=== PATIENT | male | born 1975 | race Caucasian/White ===

== ENCOUNTER 2016-11-01 18:13 | Emergency (ER) | payer OTHER ==
[~2016-11-01] VITALS: Wt 90.7 kg
[~2016-11-01 18:13] MED LIST: ATARAX25 MG PO; BENTYL20 MG PO; CATAFLAM50 MG PO; CINNAMON500 MG PO; CLARITIN-D 10 M1 T24 PO; DAYPRO600 M1 PO; EPI EZ PEN1 MG/ML IM; FLAGYL500 MG PO; FLEXERIL10 MG PO; HYDROCODONE BIT1 T11 PO; MEDROL DOSEPAK4 MG PO; MOTRIN800 MG PO; NAPROSYN500 MG PO; NKHM; PREDNISONE20 MG PO; ROBAXIN750 MG PO; TAGAMET300 MG PO; VICODIN 500 MG-1 TAB PO
[2016-11-01] MEDS ORDERED: AMOXICILLIN500 M2 PO (19:29)
== END 2016-11-01 19:49 | disposition home or self-care (01) ==
LOC: ED 18:13
DX: J02.9 Acute pharyngitis, unspecified (principal); F17.200 Nicotine dependence, unspecified, uncomplicated; Z88.6 Allergy status to analgesic agent

== ENCOUNTER 2017-05-05 08:16 | Emergency (ER) | payer BC, OTHER ==
[~2017-05-05] VITALS: Ht 175.2 cm; Wt 77.1 kg
[~2017-05-05 08:16] MED LIST changes: +AMOXICILLIN500 M2 PO
== END 2017-05-05 08:47 | disposition home or self-care (01) ==
LOC: ED 08:16
DX: L25.9 Unspecified contact dermatitis, unspecified cause (principal); H57.8 Other specified disorders of eye and adnexa; F17.200 Nicotine dependence, unspecified, uncomplicated; Z88.6 Allergy status to analgesic agent

== ENCOUNTER 2017-08-31 17:58 | Emergency (ER) | payer BC ==
[~2017-08-31] VITALS: Wt 79.4 kg
[2017-08-31] MEDS ORDERED: VIBRAMYCIN100 MG PO (19:58)
[2017-08-31] MEDS ORDERED: NAPROSYN500 MG PO (19:58)
[2017-08-31] MEDS ORDERED: Motrin,Rufen800 MG PO (20:07)
== END 2017-08-31 20:03 | disposition home or self-care (01) ==
LOC: ED 17:58
DX: N45.1 Epididymitis (principal); F17.200 Nicotine dependence, unspecified, uncomplicated; F10.10 Alcohol abuse, uncomplicated; Z88.8 Allergy status to other drugs, medicaments and biological substances; Z79.899 Other long term (current) drug therapy

== ENCOUNTER 2017-10-12 03:58 | Emergency (ER) | payer BC ==
[~2017-10-12] VITALS: Ht 177.8 cm; Wt 72.6 kg
[~2017-10-12 03:58] MED LIST changes: +Motrin,Rufen800 MG PO; +VIBRAMYCIN100 MG PO
[2017-10-12 04:37] LABS: URINE AMPHETAMINES > 1000 (1000ng/ml); URINE BARBITURATES < 200 (200ng/ml); URINE BENZODIAZEPINES > 200 (200ng/ml); URINE CANNABINOIDS (THC) < 50 (50ng/ml); URINE COCAINE > 300 (300ng/ml); URINE METHADONE < 300 (300ng/ml); URINE OPIATES < 300 (300ng/ml)
[2017-10-12 04:38] LABS: URINE PHENCYCLIDINE < 25 (25ng/ml)
[2017-10-12 04:45] LABS: BASO # 0.1 10*3/uL (0.0-0.1); BASO % 0.5 % (0.0-1.0); EOS % 0.2 % (1.0-4.0); HEMOGLOBIN 13.4 g/dl (14.0-18.0); LYMPH # 1.5 10*3/uL (1.3-4.4); LYMPH % 8.3 % (27.0-41.0); MEAN CELL VOLUME 87.5 fl (80.0-94.0); MEAN CORPUSCULAR HGB 29.3 pg (27.0-31.0); MEAN CORPUSCULAR HGB CONC 33.5 g/dl (33.0-37.0); MEAN PLATELET VOLUME 10.9 fl (9.6-12.3); MONO # 1.4 10*3/uL (0.1-1.0); MONO % 7.7 % (3.0-9.0); NEUT # 15.2 10*3/uL (2.3-7.9); NEUT % 82.2 % (47.0-73.0); PLATELET COUNT AUTOMATED 229 10*3/uL (130-400); RED BLOOD COUNT 4.57 10*6/uL (4.50-5.90); RED CELL DISTRI WIDTH 13.4 % (0-14.5); WHITE BLOOD COUNT 18.4 10*3/uL (4.8-10.8)
[2017-10-12 04:59] LABS: ALBUMIN 3.6 gm/dl (3.1-4.5); ALKALINE PHOSPHATASE 87 U/L (45-117); BUN 21 mg/dl (7-24); CHLORIDE 108 mmol/L (98-107); CREATININE 1.36 mg/dL (0.70-1.30); POTASSIUM 4.2 mmol/L (3.5-5.1); SGOT/AST 50 IU/L (3-35); SGPT/ALT 38 U/L (12-78); SODIUM 142 mmol/L (136-145); TOTAL PROTEIN 7.2 gm/dL (6.4-8.2)
[2017-10-12 05:00] LABS: ACETAMINOPHEN (TYLENOL) < 2.0 ug/ml (10-30); ETHYL ALCOHOL < 3.0 mg/dl (<3)
== END 2017-10-12 07:46 ==
LOC: ED 03:58
PROVIDERS: Emergency Medicine Emergency Medical Services
DX: S51.812A Laceration without foreign body of left forearm, initial encounter (principal); F19.10 Other psychoactive substance abuse, uncomplicated; Z88.6 Allergy status to analgesic agent; W16.112A Fall into natural body of water striking water surface causing other injury, initial encounter; Y93.39 Activity, other involving climbing, rappelling and jumping off; Y92.89 Other specified places as the place of occurrence of the external cause; Y99.8 Other external cause status

== ENCOUNTER 2018-02-27 10:49 | Inpatient (IN) | payer SELFPAY ==
[~2018-02-27] VITALS: Ht 175.3 cm; Wt 80.9 kg
--- NOTE | ~2018-02-27 | EKG ---
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
[2018-02-27 10:53] VITALS: BP 125/85
[2018-02-27 11:21] LABS: HEMATOCRIT 51.9 % (42.0-52.0); HEMOGLOBIN 16.6 g/dl (14.0-18.0); MEAN CELL VOLUME 89.6 fl (80.0-94.0); MEAN CORPUSCULAR HGB 28.7 pg (27.0-31.0); PLATELET COUNT AUTOMATED 205 10*3/uL (130-400); RED BLOOD COUNT 5.79 10*6/uL (4.50-5.90); RED CELL DISTRI WIDTH 13.7 % (0-14.5); WHITE BLOOD COUNT 8.6 10*3/uL (4.8-10.8)
[2018-02-27 11:29] LABS: ACT PARTIAL THROMBO TIME 25.5 SECONDS (20.8-31.5); INTERNATIONAL NORM RATIO 1.1 (2.0-3.5)
[2018-02-27 11:38] LABS: ALBUMIN 3.6 gm/dl (3.1-4.5); ALKALINE PHOSPHATASE 239 U/L (45-117); BUN 10 mg/dl (7-24); CHLORIDE 107 mmol/L (98-107); CREATININE 1.36 mg/dL (0.70-1.30); LIPASE 161 U/L (73-393); POTASSIUM 4.2 mmol/L (3.5-5.1); SGOT/AST 802 IU/L (3-35); SODIUM 140 mmol/L (136-145); TOTAL PROTEIN 7.5 gm/dL (6.4-8.2)
[2018-02-27 11:39] LABS: ATYPICAL LYMPHS 4 % (0-0); TOTAL CELLS COUNTED 100 #CELLS
[2018-02-27 11:40] LABS: PLATELET SUFFICIENCY NORMAL (NORMAL)
[2018-02-27 11:47] LABS: SGPT/ALT 1929 U/L (12-78); TROPONIN I < 0.015 ng/ml (<0.045)
[2018-02-27 12:00] VITALS: BP 99/72
[2018-02-27 13:20] VITALS: BP 99/72
[2018-02-27 16:00] VITALS: BP 109/77
[2018-02-27 19:51] LABS: URINE AMPHETAMINES < 1000 (1000ng/ml); URINE BARBITURATES > 200 (200ng/ml); URINE BENZODIAZEPINES < 200 (200ng/ml); URINE CANNABINOIDS (THC) < 50 (50ng/ml); URINE COCAINE > 300 (300ng/ml); URINE METHADONE < 300 (300ng/ml); URINE OPIATES < 300 (300ng/ml)
[2018-02-27 19:52] LABS: URINE PHENCYCLIDINE < 25 (25ng/ml)
[2018-02-28 08:49] LABS: HEPATITIS B SURFACE AG Negative (Negative)
[2018-02-28 09:15] LABS: HEPATITIS C VIRUS ANTIBODY 8.8 s/co (0.0-0.9)
[2018-02-28 10:02] LABS: AFP TUMOR MARKER 002253 3.3 ng/mL (0.0-8.3)
== END 2018-02-27 21:07 | disposition left against medical advice (07) | DRG 683 ==
LOC: ED 10:49 → EDHOLD 12:36 → 4E 12:51
PROVIDERS: Emergency Medicine; Internal Medicine; Student in an Organized Health Care Education/Training Program
DX: N17.0 Acute kidney failure with tubular necrosis (principal); K82.0 Obstruction of gallbladder; B17.9 Acute viral hepatitis, unspecified; E80.6 Other disorders of bilirubin metabolism; K76.0 Fatty (change of) liver, not elsewhere classified; F17.210 Nicotine dependence, cigarettes, uncomplicated; E83.51 Hypocalcemia; N18.9 Chronic kidney disease, unspecified; Z88.8 Allergy status to other drugs, medicaments and biological substances

== ENCOUNTER 2018-05-25 16:57 | Emergency (ER) | payer SELFPAY ==
[~2018-05-25] VITALS: Ht 177.8 cm; Wt 86.2 kg
[2018-05-25 17:45] LABS: BILIRUBIN 1+ (NEGATIVE); BLOOD 3+ (NEGATIVE); CLARITY TURBID (CLEAR); COLOR BROWN (YELLOW); GLUCOSE NEGATIVE (NEGATIVE); KETONE TRACE (NEGATIVE); NITRITE POSITIVE (NEGATIVE); PH 6.5 (5.0-9.0); SPECIFIC GRAVITY >= 1.030 (1.005-1.030)
[2018-05-25 17:53] LABS: LEUKO ESTERASE 2+ (NEGATIVE)
[2018-05-25 17:54] LABS: RBC TNTC rbc/hpf (0-2)
[2018-05-25] MEDS ORDERED: ZOFRAN4 MG PO (17:58)
[2018-05-25] MEDS ORDERED: PYRIDIUM200 M1 PO (17:58)
[2018-05-25] MEDS ORDERED: SEPTDS PO (17:58)
[2018-05-28 21:02] LABS: GONOCOCCUS BY NAA Negative (Negative)
== END 2018-05-25 18:16 | disposition home or self-care (01) ==
LOC: ED 16:57
PROVIDERS: Nurse Practitioner Family
DX: N39.0 Urinary tract infection, site not specified (principal); R03.0 Elevated blood-pressure reading, without diagnosis of hypertension; N18.9 Chronic kidney disease, unspecified; F10.10 Alcohol abuse, uncomplicated; Z88.5 Allergy status to narcotic agent; Z88.8 Allergy status to other drugs, medicaments and biological substances

== ENCOUNTER 2018-07-18 11:32 | Emergency (ER) | payer SELFPAY ==
[~2018-07-18] VITALS: Wt 79.4 kg
[~2018-07-18 11:32] MED LIST changes: +PYRIDIUM200 M1 PO; +SEPTDS PO; +ZOFRAN4 MG PO
[2018-07-18 12:02] LABS: BILIRUBIN NEGATIVE (NEGATIVE); BLOOD 3+ (NEGATIVE); CLARITY CLOUDY (CLEAR); COLOR YELLOW (YELLOW); GLUCOSE NEGATIVE (NEGATIVE); KETONE NEGATIVE (NEGATIVE); LEUKO ESTERASE 1+ (NEGATIVE); NITRITE NEGATIVE (NEGATIVE); SPECIFIC GRAVITY 1.025 (1.005-1.030); UROBILINOGEN 0.2 E.U./dl (0.2-1.0)
[2018-07-18 12:10] LABS: BACTERIA 2+; RBC TNTC rbc/hpf (0-2); WBC 31-40 wbc/hpf (0-5)
[2018-07-18 13:01] LABS: HEMATOCRIT 44.8 % (42.0-52.0); HEMOGLOBIN 14.4 g/dl (14.0-18.0); MEAN CELL VOLUME 90.9 fl (80.0-94.0); MEAN CORPUSCULAR HGB 29.2 pg (27.0-31.0); MEAN CORPUSCULAR HGB CONC 32.1 g/dl (33.0-37.0); MEAN PLATELET VOLUME 10.8 fl (9.6-12.3); PLATELET COUNT AUTOMATED 336 10*3/uL (130-400); RED BLOOD COUNT 4.93 10*6/uL (4.50-5.90); RED CELL DISTRI WIDTH 13.5 % (0-14.5); WHITE BLOOD COUNT 21.1 10*3/uL (4.8-10.8)
[2018-07-18 13:18] LABS: ALBUMIN 3.6 gm/dl (3.1-4.5); ALKALINE PHOSPHATASE 124 U/L (45-117); BUN 9 mg/dl (7-24); CHLORIDE 107 mmol/L (98-107); CREATININE 1.01 mg/dL (0.70-1.30); POTASSIUM 4.3 mmol/L (3.5-5.1); SGOT/AST 21 IU/L (3-35); SGPT/ALT 29 U/L (12-78); SODIUM 138 mmol/L (136-145)
[2018-07-18 13:22] LABS: TOTAL CELLS COUNTED 100 #CELLS
[2018-07-18 13:23] LABS: PLATELET SUFFICIENCY NORMAL (NORMAL)
[2018-07-19 21:09] LABS: GONOCOCCUS BY NAA Negative (Negative)
== END 2018-07-18 14:56 | disposition short-term general hospital (02) ==
LOC: ED 11:32
PROVIDERS: Emergency Medicine
DX: N45.1 Epididymitis (principal); N18.9 Chronic kidney disease, unspecified; F17.200 Nicotine dependence, unspecified, uncomplicated; Z88.8 Allergy status to other drugs, medicaments and biological substances

== ENCOUNTER 2022-05-05 10:24 | Emergency (ER) | payer OTHER ==
[~2022-05-05] VITALS: Ht 175.2 cm; Wt 102.5 kg
[2022-05-05 11:39] LABS: BASO # 0.1 10*3/uL (0.0-0.1); BASO % 0.8 % (0.0-1.0); EOS # 0.3 10*3/uL (0.0-0.4); EOS % 3.7 % (1.0-4.0); LYMPH # 2.1 10*3/uL (1.3-4.4); LYMPH % 23.5 % (27.0-41.0); MEAN CELL VOLUME 90.1 fl (80.0-94.0); MEAN CORPUSCULAR HGB 29.1 pg (27.0-31.0); MEAN CORPUSCULAR HGB CONC 32.3 g/dl (33.0-37.0); MEAN PLATELET VOLUME 11.6 fl (9.6-12.3); MONO # 1.3 10*3/uL (0.1-1.0); MONO % 14.9 % (3.0-9.0); NEUT % 56.4 % (47.0-73.0); PLATELET COUNT AUTOMATED 194 10*3/uL (130-400); RED BLOOD COUNT 5.33 10*6/uL (4.50-5.90); RED CELL DISTRI WIDTH 13.2 % (0-14.5); WHITE BLOOD COUNT 8.9 10*3/uL (4.8-10.8)
[2022-05-05 11:57] LABS: ALKALINE PHOSPHATASE 119 U/L (45-117); BUN 13 mg/dl (7-24); CHLORIDE 113 mmol/L (98-107); CREATININE 0.92 mg/dL (0.70-1.30); POTASSIUM 4.2 mmol/L (3.5-5.1); SGOT/AST 101 IU/L (3-35); SGPT/ALT 254 U/L (12-78); SODIUM 139 mmol/L (136-145); TOTAL PROTEIN 7.5 gm/dL (6.4-8.2)
== END 2022-05-05 13:22 | disposition home or self-care (01) ==
LOC: ED 10:24
PROVIDERS: Physician Assistant
DX: L03.116 Cellulitis of left lower limb (principal); F17.200 Nicotine dependence, unspecified, uncomplicated; Z88.8 Allergy status to other drugs, medicaments and biological substances; Z91.048 Other nonmedicinal substance allergy status

== ENCOUNTER 2024-04-27 16:04 | Emergency (ER) | payer OTHER ==
[~2024-04-27] VITALS: Ht 177.8 cm; Wt 102.1 kg
[~2024-04-27 16:04] MED LIST changes: +VIBRA-TAB100 MG PO
[2024-04-27] MEDS ORDERED: Dexamethasone Sodium Phospha 20 MG/5 ML VIAL IM ONE (16:20)
[2024-04-27] MEDS ORDERED: diphenhydrAMINE hydrochloride 25 MG CAP PO ONE (16:20)
[2024-04-27] MEDS ORDERED: PREDNISONE20 M1 PO (16:21)
== END 2024-04-27 16:35 | disposition home or self-care (01) ==
LOC: ED 16:04
DX: T63.441A Toxic effect of venom of bees, accidental (unintentional), initial encounter (principal); F17.200 Nicotine dependence, unspecified, uncomplicated; Z88.6 Allergy status to analgesic agent; Z88.8 Allergy status to other drugs, medicaments and biological substances; Z98.890 Other specified postprocedural states; Y92.009 Unspecified place in unspecified non-institutional (private) residence as the place of occurrence of the external cause

== ENCOUNTER → 2024-04-29 | Outpatient (CLI) | payer OTHER ==
[~2024-04-29] MED LIST changes: +PREDNISONE20 M1 PO
== END | disposition home or self-care (01) ==
LOC: RAD 12:14
PROVIDERS: ATTEND Nurse Practitioner Family
DX: M77.8 Other enthesopathies, not elsewhere classified (principal)

== ENCOUNTER → 2024-05-15 | Outpatient (CLI) | payer OTHER ==
[2024-05-15 08:08] LABS: BASO # 0.1 10*3/uL (0.0-0.1); BASO % 0.9 % (0.0-1.0); EOS # 0.5 10*3/uL (0.0-0.4); EOS % 4.4 % (1.0-4.0); HEMATOCRIT 52.2 % (42.0-52.0); LYMPH # 1.8 10*3/uL (1.3-4.4); LYMPH % 17.4 % (27.0-41.0); MEAN CELL VOLUME 88.8 fl (80.0-94.0); MEAN CORPUSCULAR HGB 28.6 pg (27.0-31.0); MEAN CORPUSCULAR HGB CONC 32.2 g/dl (33.0-37.0); MEAN PLATELET VOLUME 10.9 fl (9.6-12.3); MONO # 1.2 10*3/uL (0.1-1.0); MONO % 11.2 % (3.0-9.0); NEUT # 6.7 10*3/uL (2.3-7.9); NEUT % 64.8 % (47.0-73.0); PLATELET COUNT AUTOMATED 182 10*3/uL (130-400); RED BLOOD COUNT 5.88 10*6/uL (4.50-5.90); RED CELL DISTRI WIDTH 13.8 % (0-14.5); WHITE BLOOD COUNT 10.3 10*3/uL (4.8-10.8)
[2024-05-15 08:37] LABS: ALKALINE PHOSPHATASE 118 U/L (46-116); BUN 15 mg/dl (9-23); CHLORIDE 102 mmol/L (98-107); CHOLESTEROL 164 mg/dL (<200); LDL CHOLESTEROL 93 mg/dL (9-159); POTASSIUM 4.2 mmol/L (3.4-5.1); SGPT/ALT 49 U/L (5-49); TOTAL PROTEIN 7.7 gm/dL (6.0-8.0); TRIGLYCERIDES 183 mg/dl (<150)
[2024-05-15 08:49] LABS: VITAMIN D, 25-HYDROXY 26.7 ng/mL (30-100)
== END | disposition home or self-care (01) ==
LOC: LAB 07:44
PROVIDERS: ATTEND Nurse Practitioner Family
DX: Z13.0 Encounter for screening for diseases of the blood and blood-forming organs and certain disorders involving the immune mechanism (principal); Z13.220 Encounter for screening for lipoid disorders; Z13.29 Encounter for screening for other suspected endocrine disorder; R53.83 Other fatigue; Z76.89 Persons encountering health services in other specified circumstances

== ENCOUNTER → 2024-06-06 | Outpatient (CLI) | payer OTHER ==
[2024-06-07 05:07] LABS: HBSAG Negative (Negative); HEP B CORE AB, IGM Negative (Negative)
[2024-06-08 20:06] LABS: HEPATITIS C ANTIBODY Reactive (Non Reactive)
== END | disposition home or self-care (01) ==
LOC: US 00:08 → LAB 00:08 → US 10:00
PROVIDERS: ATTEND Internal Medicine
DX: R16.0 Hepatomegaly, not elsewhere classified (principal); K76.0 Fatty (change of) liver, not elsewhere classified; R74.8 Abnormal levels of other serum enzymes

== ENCOUNTER 2024-07-15 17:35 | Emergency (ER) | payer OTHER ==
[2024-07-15] MEDS ORDERED: FAMOTIDINE 20 MG TAB PO ONE (18:00)
[2024-07-15] MEDS ORDERED: methylPREDNISolone sod succ 125 MG VIAL IV ONE (18:00)
[2024-07-15] MEDS ORDERED: SODIUM CHLORIDE 0.9% 1,000 ML IV ONE (18:00)
[2024-07-15] MEDS ORDERED: diphenhydrAMINE hydrochloride 50 MG/ML VIAL IV ONE (18:00)
[2024-07-15] MEDS ORDERED: PEPCID40 MG PO (19:13)
[2024-07-15] MEDS ORDERED: HYDROXYZINE HCL25 MG PO (19:13)
[2024-07-15] MEDS ORDERED: PREDNISONE20 M1 PO (19:13)
== END 2024-07-15 19:19 | disposition home or self-care (01) ==
LOC: ED 17:35
DX: L50.9 Urticaria, unspecified (principal); T78.49XA Other allergy, initial encounter; F17.200 Nicotine dependence, unspecified, uncomplicated; Z88.6 Allergy status to analgesic agent; Z88.8 Allergy status to other drugs, medicaments and biological substances; Z98.890 Other specified postprocedural states; X58.XXXA Exposure to other specified factors, initial encounter

== ENCOUNTER 2024-09-01 05:32 | Emergency (ER) | payer OTHER ==
[~2024-09-01] VITALS: Ht 177.8 cm; Wt 99.8 kg
[~2024-09-01 05:32] MED LIST changes: +HYDROXYZINE HCL25 MG PO; +PEPCID40 MG PO
[2024-09-01] MEDS ORDERED: Dexamethasone Sodium Phospha 20 MG/5 ML VIAL IM ONE (05:50)
[2024-09-01] MEDS ORDERED: diphenhydrAMINE hydrochloride 50 MG/ML VIAL IM ONE (05:50)
[2024-09-01] MEDS ORDERED: MEDROL DOSEPAK4 MG PO (06:29)
== END 2024-09-01 06:42 | disposition home or self-care (01) ==
LOC: ED 05:32
DX: T78.40XA Allergy, unspecified, initial encounter (principal); L53.9 Erythematous condition, unspecified; F17.200 Nicotine dependence, unspecified, uncomplicated; Z88.6 Allergy status to analgesic agent; Z88.8 Allergy status to other drugs, medicaments and biological substances; Z98.890 Other specified postprocedural states; X58.XXXA Exposure to other specified factors, initial encounter

== ENCOUNTER → 2024-12-26 | Outpatient (CLI) | payer OTHER ==
[2024-12-26 08:01] LABS: HEMATOCRIT 46.2 % (42.0-52.0); MEAN CORPUSCULAR HGB 28.2 pg (27.0-31.0); MEAN PLATELET VOLUME 9.9 fl (9.6-12.3); PLATELET COUNT AUTOMATED 246 10*3/uL (130-400); RED BLOOD COUNT 5.25 10*6/uL (4.50-5.90); RED CELL DISTRI WIDTH 13.8 % (0-14.5); WHITE BLOOD COUNT 8.1 10*3/uL (4.8-10.8)
[2024-12-26 08:11] LABS: MANUAL DIFF REFLEX YES
[2024-12-26 08:19] LABS: BASOPHILS 1 % (0-1); BURR CELLS FEW; OVALOCYTES FEW; PLATELET SUFFICIENCY NORMAL (NORMAL); POLYCHROMASIA SLIGHT; TOTAL CELLS COUNTED 100 #CELLS
[2024-12-26 10:25] LABS: ALKALINE PHOSPHATASE 90 U/L (46-116); BUN 7 mg/dl (9-23); CHLORIDE 104 mmol/L (98-107); POTASSIUM 4.9 mmol/L (3.4-5.1); SGPT/ALT 21 U/L (5-49); TOTAL PROTEIN 7.5 gm/dL (6.0-8.0)
[2024-12-26 10:41] LABS: FREE T4 0.86 ng/dl (0.89-1.76)
== END | disposition home or self-care (01) ==
LOC: LAB 00:27
PROVIDERS: ATTEND Internal Medicine
DX: R42 Dizziness and giddiness (principal); M25.50 Pain in unspecified joint